=== PATIENT | female | born 1965 | race African-American/Black ===

== ENCOUNTER 2016-11-29 20:32 | Emergency (ER) | payer OTHER ==
[~2016-11-29] VITALS: Ht 160 cm; Wt 101.4 kg
[~2016-11-29 20:32] MED LIST: ALEVE220 M2 PO; BIOTIN2500 MCG PO; DAILY VALUE1 EACH PO; MOTRIN600 MG PO; VALIUM5 MG PO; VOLTAREN100 GM TP
[2016-11-29 21:51] LABS: ADD MIUA? YES; BILIRUBIN NEGATIVE; BLOOD NEGATIVE; COLOR YELLOW ((YELLOW)); GLUCOSE (STRIP) NEGATIVE; KETONES NEGATIVE; LEUKOCYTES NEGATIVE; PROTEIN (STRIP) NEGATIVE; SPECIFIC GRAVITY 1.018 (1.000-1.030); UROBILINOGEN 0.2 MG/DL (0.2-1.0)
[2016-11-29 22:15] LABS: EPITHELIAL CELLS RARE /HPF; MUCUS NONE SEEN /LPF; RED BLOOD CELLS 0-5 /HPF (0-5); WHITE BLOOD CELLS 0-5 /HPF (0-5)
[2016-11-29 22:16] LABS: BACTERIA 2+ /HPF; NITRITE NEGATIVE
[2016-11-29] MEDS ORDERED: FLEXERIL5 MG PO (22:28)
[2016-11-29] MEDS ORDERED: TRAMADOL HCL50 MG PO (22:28)
[2016-11-29 22:54] VITALS: BP 140/91
== END 2016-11-29 22:55 | disposition home or self-care (01) ==
LOC: RME 20:32 → EME 20:32 → RME 22:55
PROVIDERS: Physician Assistant
DX: M54.5 Low back pain (principal); Z87.891 Personal history of nicotine dependence
CPT/HCPCS: 81003; 87077; 87086; 87186; 99281; 99284

== ENCOUNTER 2017-07-10 19:13 | Observation (INO) | payer OTHER ==
[~2017-07-10] VITALS: Ht 160 cm; Wt 100.3 kg
[~2017-07-10 19:13] MED LIST changes: +FLEXERIL5 MG PO; +TRAMADOL HCL50 MG PO
[2017-07-10 19:49] LABS: HEMATOCRIT 39.2 % (36.0-46.0); MCHC 32.7 G/DL (30.0-36.0); MCV 82.7 FL (83-99); MEAN PLAT.VOLUME 9.6 uM^3 (9.5-12.4); PLATELET COUNT 248 K/uL (156-360); RBC DIS.WIDTH-CV 13.2 % (11.8-14.6); RBC DIS.WIDTH-SD 39.8 % (39-53); RED BLOOD COUNT 4.74 M/uL (3.80-5.20); WHITE BLOOD COUNT 6.6 K/uL (4.1-10.2)
[2017-07-10 19:58] LABS: CHLORIDE 107 mEq/L (99-109); POTASSIUM 3.7 mEq/L (3.7-5.4); SODIUM 141 mEq/L (136-147)
[2017-07-10 19:59] LABS: GLUCOSE 126 mg/dL (70-99)
[2017-07-10 20:01] LABS: ANION GAP 8 MEQ/L (2-14)
[2017-07-10 20:03] LABS: GFR ESTIMATE (CALCULATED) > 59 mL/min/
[2017-07-10 20:04] LABS: UREA NITROGEN (BUN) 15 mg/dL (9-23)
[2017-07-10 20:06] LABS: TROP-I INTERPRETATION NEGATIVE; TROPONIN-I < 0.01 ng/mL (0.0-0.30)
[2017-07-10] MEDS ORDERED: TURMERIC500 M2 PO (23:23)
[2017-07-10] MEDS ORDERED: MULTI VITAMIN1 EACH PO (23:23)
[2017-07-11 02:53] VITALS: BP 90/53
[2017-07-11 03:03] LABS: TROP-I INTERPRETATION NEGATIVE; TROPONIN-I < 0.01 ng/mL (0.0-0.30)
[2017-07-11 03:40] LABS: HDL CHOLESTEROL 48 MG/DL (Desirable>=50); LDL CHOLESTEROL 127 mg/dL (Desirable<100); NON-HDL CHOLESTEROL 154 mg/dL (Desirable<160); TOTAL CHOLESTEROL 202 mg/dL (Desirable<200); TRIGLYCERIDES 137 MG/DL (Normal: <150)
[2017-07-11 05:58] VITALS: BP 98/65
[2017-07-11 08:13] VITALS: BP 93/53
[2017-07-11 09:22] LABS: TROP-I INTERPRETATION NEGATIVE; TROPONIN-I < 0.01 ng/mL (0.0-0.30)
[2017-07-12 01:00] VITALS: BP 118/75
== END 2017-07-11 10:09 | disposition home or self-care (01) ==
LOC: EME 19:13 → ENPENDDIS 07-11 → EDOF 07-11 00:11 → ENRESERV 07-11 00:12 → 5WEST 07-11 01:50
PROVIDERS: Physician Assistant
DX: R07.9 Chest pain, unspecified (principal); F17.210 Nicotine dependence, cigarettes, uncomplicated; Z83.3 Family history of diabetes mellitus; Z82.0 Family history of epilepsy and other diseases of the nervous system; Z79.82 Long term (current) use of aspirin
CPT/HCPCS: 71020; 80048; 80061; 84484; 85027; 93005; G0378